=== PATIENT | female | born 1960 | race Caucasian/White ===

== ENCOUNTER 2018-09-11 13:46 | Day surgery (SDC) | payer BC ==
[~2018-09-11] VITALS: Ht 175.3 cm; Wt 103.9 kg
[~2018-09-11 13:46] MED LIST: ASPI325 PO; Budeprion Xl300 MG PO; HORMONE REPLACEMENT SL; IBUP800 PO
== END 2018-09-11 22:44 | disposition home or self-care (01) ==
LOC: ORSCMMR 13:46 → ORD 15:30 → ORSCMMR 15:30
PROVIDERS: Orthopaedic Surgery
PROC: 0SBD4ZZ Excision of Left Knee Joint, Percutaneous Endoscopic Approach (ICD-10-PCS; principal; 2018-09-11 15:30)
DX: S83.242A Other tear of medial meniscus, current injury, left knee, initial encounter (principal); M17.12 Unilateral primary osteoarthritis, left knee; Z87.891 Personal history of nicotine dependence; Z79.899 Other long term (current) drug therapy
CPT/HCPCS: J0171; J0735; J1100; J1885; J2405; J2795; J3010; J7120

== ENCOUNTER → 2019-08-25 | Outpatient (CLI) | payer BC | END | disposition home or self-care (01) | LOC: LAB SHORT 10:52 → PLD 10:52 | DX: D22.4 Melanocytic nevi of scalp and neck (principal) | CPT/HCPCS: 88305 ==

== ENCOUNTER → 2025-01-29 | Outpatient (CLI) | payer BC | LOC: LAB 16:24 → LAB SHORT 16:24 | DX: N64.52 Nipple discharge (principal) | CPT/HCPCS: 84146; 87070; 87205 ==

== ENCOUNTER → 2025-02-01 | Outpatient (CLI) | payer BC | END | disposition home or self-care (01) | LOC: LAB 19:50 → LAB SHORT 19:50 | DX: N64.52 Nipple discharge (principal) | CPT/HCPCS: 87070; 87205 ==